=== PATIENT | female | born 1960 | race Caucasian/White ===

== ENCOUNTER 2020-12-29 01:35 | Day surgery (SDC) | payer OTHER, SELFPAY ==
[2020-12-12 14:52] VITALS: BMI 22.4
[2020-12-29 07:46] VITALS: BP 163/82; PULSE 91; RESP 18; TEMP 36.4; O2SAT 98
--- NOTE | 2020-12-29 07:56 | WPDGICN ---
Assessment and Plan Assessment and plan (1) History of colon polyps: Code(s): Z86.010 - Personal history of colonic polyps Status: Acute Assessment and Plan: Patient has a history of colon polyps removed from the colon at time last colonoscopy in 2016. Plan is for surveillance colonoscopy at this time. Further recommendations will be given after endoscopy. Adding fiber to the diet is advised given her irregular bowel habits. GI Consult Note Consult date/time: 12/29/20 07:56 HPI: Matilda Encinas is a 60 year old female presents for screening colonoscopy. Patient has a history of colon polyps identified at most recent colonoscopy 5 years ago. Her current weight appetite are normal. She has noticed bright red blood per rectum on 1 occasion 3 weeks ago. She denies any abdominal or rectal pain. She reports her bowel habits tend to be somewhat irregular alternating diarrhea and constipation. Family history is noncontributory. Patient presents today for follow-up colonoscopy because of prior history of colon polyps. Review of Systems Review of Systems: All systems reviewed & are unremarkable except as noted in HPI and below PMFSH Family History Family History Father Family history of Alzheimer's disease, Onset Age: 82 Social History Social History Smoking packs per day: 0.75 Smoking cigarettes per day: 15.0 Years smoked: 30 Smoking pack-years: 22.50 Smoking status: Current every day smoker Tobacco type: cigarettes Second hand tobacco smoke exposure: No Alcohol intake: current Living arrangements: with family Spiritual care concerns: No Meds Home Medications and Allergies Home Medications Medication Instructions Recorded Confirmed Type albuterol sulfate [ProAir HFA] 2 inh INHALATION Q4-6H PRN 12/12/20 12/12/20 History montelukast 10 mg PO DAILY PRN 12/12/20 12/12/20 History Allergies Allergy/AdvReac Type Severity Reaction Status Date / Time hydrocodone AdvReac Intermediate Panic Verified 12/29/20 07:45 attack and can't breath naproxen AdvReac Mild GI upset, Verified 12/29/20 07:45 MANCIA Vital Signs Vital Signs - 24 hr 12/29/20 07:46 Temperature 97.5 F L Pulse Rate 91 Respiratory Rate 18 Blood Pressure 163/82 H Pulse Oximetry 98 Exam Narrative: Physical exam reveals patient to be alert. Vital signs stable. HEENT exam is unremarkable. Patient is anicteric. Lungs are clear to auscultation and percussion. Heart is without murmur or extra sounds. Abdominal exam bowel sounds are present soft nontender with no hepatosplenomegaly. Digital external rectal exam is normal.
[2020-12-29] MEDS: LACTATED RINGERS 1,000 ML 150 ML IV CONT (08:00)
--- NOTE | 2020-12-29 08:15 | P.PNAN_ITS ---
Anes - Initial Pre Proc Eval Procedure: Operation Date: 12/29/20 08:30 Proposed Procedures p Screening Colonoscopy - Jonathon Frausto MD Date/Time: 12/29/20 08:15 Surgeon: Jonathon Frausto MD Pre Op Diagnosis: hx of colon polyps, neoplasm Patient Data Age: 60 Gender: F Height: 1.7 m Weight: 65 kg Last Vital Signs Temp 97.5 F L 12/29/20 07:46 Pulse 91 12/29/20 07:46 Resp 18 12/29/20 07:46 BP 163/82 H 12/29/20 07:46 Pulse Ox 98 12/29/20 07:46 Allergies Allergy/AdvReac Type Severity Reaction Status Date / Time hydrocodone AdvReac Intermediate Panic Verified 12/29/20 07:45 attack and can't breath naproxen AdvReac Mild GI upset, Verified 12/29/20 07:45 MANCIA Home Medications Medication Instructions Recorded Confirmed Type albuterol sulfate [ProAir HFA] 2 inh INHALATION Q4-6H PRN 12/12/20 12/12/20 History montelukast 10 mg PO DAILY PRN 12/12/20 12/12/20 History Patient hx anesthesia problems: none Family hx anesthesia problems: none Results Review: All pre-operative results and documents have been reviewed as part of the pre-operative evaluation. [facility] Family History Family History Father Family history of Alzheimer's disease, Onset Age: 82 Social History Social History Smoking packs per day: 0.75 Smoking cigarettes per day: 15.0 Years smoked: 30 Smoking pack-years: 22.50 Smoking status: Current every day smoker Tobacco type: cigarettes Second hand tobacco smoke exposure: No Alcohol intake: current Living arrangements: with family Spiritual care concerns: No Anes - Eval Final PreProcedure Day of Procedure 12/29/20 08:15 Patient weight: normal Heart: regular rate and rhythm Lungs: clear to auscultation Airway: Mallampati scale class II Neurological: alert and oriented Last oral intake: >/= 8 hours ASA classification: II Emergent: no Anesthetic plan: proceed Anesthesia type and monitoring: general GIVS and standard monitoring Results Review: All pre-operative results and documents have been reviewed as part of the pre-operative evaluation. Informed Consent: The patient's anesthetic plan and its attendant risks and benefits were discussed with the patient/family/POA. Questions were solicited and answers provided to the satisfaction of the patient/family/POA.
[2020-12-29 09:14] VITALS: BP 124/73; PULSE 72; RESP 25; O2SAT 100
[2020-12-29 09:24] VITALS: BP 138/83; PULSE 73; RESP 23; O2SAT 100
[2020-12-29 09:34] VITALS: BP 154/79; PULSE 72; RESP 22; O2SAT 100
== END 2020-12-29 09:37 | disposition home or self-care (01) ==
PROVIDERS: PCP Internal Medicine; Visit Provider Internal Medicine Gastroenterology
PROC: 0DJD8ZZ Inspection of Lower Intestinal Tract, Via Natural or Artificial Opening Endoscopic (ICD-10-PCS; CPT 45378; principal; 2020-12-29 08:30)
DX: Z12.11 Encounter for screening for malignant neoplasm of colon (principal); K63.5 Polyp of colon; D12.2 Benign neoplasm of ascending colon; D12.3 Benign neoplasm of transverse colon; K64.8 Other hemorrhoids; Z79.51 Long term (current) use of inhaled steroids; F17.210 Nicotine dependence, cigarettes, uncomplicated
CPT/HCPCS: 45385; 88305; J2704; J7120